=== PATIENT | male | born 1950 | race Caucasian/White ===

== ENCOUNTER → 2023-10-01 | Outpatient (CLI) | payer MEDICARE, OTHER, SELFPAY ==
--- NOTE | 2023-10-01 09:06 | AAAS_ITS ---
Reason For Study: AAA SCREENING Aorta Measurements Aorta Doppler Measurements Proximal aorta measures2.04 X 2.06cm. in cross- Peak systolic flow velocities within the proximal sectional axis. aorta measure 103.0 cm/sec. Proximal aorta measures2.06cm. in longitudinal Peak systolic flow velocities within the mid aorta axis. measure 105.1 cm/sec. Mid aorta measures1.85 X 1.84cm. in cross- Peak systolic flow velocities within the distal sectional axis. aorta measure 69.9 cm/sec. Mid aorta measures1.71cm. in longitudinal axis. Distal aorta measures1.79 X 1.67cm. in cross- sectional axis. Distal aorta measures1.79cm. in longitudinal axis. Left Iliac Artery Left iliac artery measures 1.36 X 1.31 cm. in the cross-sectional axis. Left iliac artery measures 1.3 cm. in the longitudinal axis. Peak systolic velocity in the left iliac artery measures 87.5 cm/sec. Right Iliac Artery Right iliac artery measures 1.22 X 1.18 cm. in the cross-sectional axis. Right iliac artery measures 1.18 cm. in the longitudinal axis. Peak systolic velocity in the right iliac artery measures 71.1 cm/sec. VL/AAA Screening Interpretation Summary Aorta patent, normal caliber Right iliac artery patent with ectasia to 1.36 cm Left iliac artery patent with ectasia to 1.22 cm Ordering Physician: Davis Kapadia Referring Physician: Davis Kapadia Performed By: Kendra Palafox, NHANCS, RVT
== END | disposition home or self-care (01) ==
PROVIDERS: PCP Nurse Practitioner Family; Referring Provider Nurse Practitioner Family; Visit Provider Nurse Practitioner Family
DX: Z13.6 Encounter for screening for cardiovascular disorders (principal)
CPT/HCPCS: 76706